=== PATIENT | female | born 1985 | race Caucasian/White ===

== ENCOUNTER 2018-12-21 03:14 | Emergency (ER) | payer MEDICAID, OTHER ==
[~2018-12-21] VITALS: Ht 170.2 cm; Wt 98.5 kg
[2018-12-21 03:19] VITALS: BP 131/81
[2018-12-21] MEDS ORDERED: NACL 0.9% 1,000 ML IV ONE (04:05)
[2018-12-21] MEDS ORDERED: ONDANSETRON 4 MG/2 ML VIAL IVP ONE (04:25)
[2018-12-21 04:35] LABS: BASOPHILS % (AUTO) 0.2 % (0.0-2.0); EOSINOPHILS % (AUTO) 0.4 % (0.0-4.0); HEMATOCRIT 28.7 % (36-48); HEMOGLOBIN 9.2 g/dL (12.0-16.0); LYMPHOCYTES # (AUTO) 1.4 K/uL (2.5-16.5); LYMPHOCYTES % (AUTO) 12.6 % (20.5-51.1); MEAN CORPUSCULAR HEMOGLOBIN 26 pg (27-31); MEAN CORPUSCULAR HGB CONC 32 g/dL (33-37); MONOCYTES # (AUTO) 0.4 K/uL (0.8-1.0); MONOCYTES % (AUTO) 3.6 % (1.7-9.3); NEUTROPHILS # (AUTO) 9.6 K/uL (1.8-7.7); NEUTROPHILS % (AUTO) 83.2 % (42.2-75.2); PLATELET COUNT (AUTO) 383 K/uL (140-450); RED BLOOD CELL COUNT(AUTO) 3.51 MIL/uL (4.20-5.40); RED CELL DISTRIBUTION WIDTH 17.7 % (11.6-13.7); WHITE BLOOD COUNT (AUTO) 11.5 K/uL (4.8-10.8)
[2018-12-21 04:48] LABS: ANION GAP 8.9 (8-16); CARBON DIOXIDE 32.1 mmol/L (21-32); CREATININE 0.9 mg/dL (0.6-1.3)
[2018-12-21 04:55] LABS: ALBUMIN 3.6 g/dL (3.4-5.0); TOTAL BILIRUBIN 0.3 mg/dL (0.0-1.0)
[2018-12-21 05:13] LABS: PROTHROMBIN TIME 10.2 secs (10.8-13.4)
[2018-12-21 06:30] LABS: BILIRUBIN,URINE NEGATIVE (NEGATIVE); BLOOD, URINE 2+ (NEGATIVE); COLOR,URINE YELLOW (YELLOW); LEUKOCYTE ESTERASE ,URINE NEGATIVE (NEGATIVE); NITRITE, URINE NEGATIVE (NEGATIVE); UGLUCOSE NEGATIVE (NEGATIVE)
[2018-12-21] MEDS ORDERED: FERR-252 PO (06:33)
[2018-12-21] MEDS ORDERED: LORA-476 PO (06:33)
[2018-12-21] MEDS ORDERED: magnesium PO (06:33)
[2018-12-21] MEDS ORDERED: CYAN1TAB67 PO (06:33)
[2018-12-21 06:36] VITALS: BP 128/81
[2018-12-21 06:38] LABS: APPEARANCE,URINE HAZY (CLEAR)
[2018-12-21 06:44] LABS: RBC,URINE 11-20 (MOD) /HPF (0-5)
[2018-12-21 06:45] LABS: WBC,URINE NONE SEEN /HPF (0-5)
== END 2018-12-21 06:28 | disposition home or self-care (01) ==
LOC: MED 03:14
DX: N93.8 Other specified abnormal uterine and vaginal bleeding (principal); R42 Dizziness and giddiness; R07.9 Chest pain, unspecified; F41.9 Anxiety disorder, unspecified; Z79.899 Other long term (current) drug therapy; Z88.0 Allergy status to penicillin; Z88.6 Allergy status to analgesic agent; Z88.5 Allergy status to narcotic agent
CPT/HCPCS: 36415; 76856; 80053; 81001; 85025; 85610; 85730; 86900; 86901; 96361; 96374; 99284; J2405; J7030; Q0092

== ENCOUNTER 2019-04-21 05:20 | Emergency (ER) | payer OTHER ==
[~2019-04-21] VITALS: Ht 170.2 cm; Wt 90.7 kg
[~2019-04-21 05:20] MED LIST: CYAN1TAB67 PO; FERR-252 PO; LORA-476 PO; magnesium PO
[2019-04-21 05:25] VITALS: BP 153/91
--- NOTE | 2019-04-21 05:25 | NUR ---
33 Y/O FEMALE BIB SELF REPORTS HEADACHES, NAUSEA, PHELGM, BODY ACHES, THROAT PAIN, AND CONGESTION STARTED THREE DAYS AGO WORSE SINCE YESTERDAY. PATIENT STATES THAT SHE HAS TAKEN TYLENOL FOR THE PAIN WITH SOME RELIEF. DENIES VOMITING/DIARRHEA. PAIN IS A 3/10 GENERALIZED, ACHING BODY PAIN. BREATHING IS UNLABORED AND SYMMETRICAL; MUCOUS MEMBRANES PINK AND MOIST. ABDOMEN SOFT AND ROUND; BOWEL SOUNDS ACTIVE ON ALL FOUR QUADRANTS. ERMD MADE AWARE OF STATUS. SIDE [id number]. PLACED ON MONITOR. HX: THYROID, ANXIETY, VITAMIN DEFECIENCY RX: ATIVAN; METHIMAZOLE Addendum: 04/21/19 at 0551 by MEDMARGARITA ALLERGIES: PENICILLIN; ASPIRIN, MEPERIDINE, SHRIMP
--- NOTE | 2019-04-21 05:59 | NUR ---
Dr. Weeks examining patient.
[2019-04-21] MEDS: NACL 0.9% 500 ML IV ONE (06:22)
[2019-04-21 07:04] VITALS: BP 135/83
--- NOTE | 2019-04-21 07:04 | NUR ---
Patient discharged with v/s stable. Written and verbal after care instructions given and explained. Patient alert, oriented and verbalized understanding of instructions. Ambulatory with steady gait. All questions addressed prior to discharge. ID band removed. Patient advised to follow up with PMD. Rx of PROMETHAZINE; MOTRIN given. Patient educated on indication of medication including possible reaction and side effects. Opportunity to ask questions provided and answered.
== END 2019-04-21 07:04 | disposition home or self-care (01) ==
LOC: MED 05:20
DX: J06.9 Acute upper respiratory infection, unspecified (principal); R03.0 Elevated blood-pressure reading, without diagnosis of hypertension; E07.9 Disorder of thyroid, unspecified; F41.9 Anxiety disorder, unspecified; Z79.899 Other long term (current) drug therapy; Z88.6 Allergy status to analgesic agent; Z88.5 Allergy status to narcotic agent; Z91.010 Allergy to peanuts
CPT/HCPCS: 87804; 99283; J7030

== ENCOUNTER 2019-04-21 20:57 | Emergency (ER) | payer OTHER ==
[~2019-04-21] VITALS: Ht 170.2 cm; Wt 90.7 kg
[2019-04-21 21:15] VITALS: BP 150/91
--- NOTE | 2019-04-21 21:30 | NUR ---
pt states she was here earlier today and had adverse reaction to promethazine. pt alert and oriented, caughing and nasal congestion. IV established, medicated per MD order.
[2019-04-21] MEDS ORDERED: ONDANSETRON 4 MG/2 ML VIAL IVP ONE (21:55)
[2019-04-21] MEDS ORDERED: NACL 0.9% 1,000 ML IV ONE (21:55)
[2019-04-21 23:17] VITALS: BP 132/78
--- NOTE | 2019-04-22 11:08 | NUR ---
Late entry. Confirmed with RN that 0.9 NS IV completed at 2300.
== END 2019-04-21 23:17 | disposition home or self-care (01) ==
LOC: MED 20:57
DX: R11.10 Vomiting, unspecified (principal); R19.7 Diarrhea, unspecified; Z86.39 Personal history of other endocrine, nutritional and metabolic disease; Z79.899 Other long term (current) drug therapy; Z88.5 Allergy status to narcotic agent; Z88.0 Allergy status to penicillin; Z88.6 Allergy status to analgesic agent; Z88.8 Allergy status to other drugs, medicaments and biological substances; Z91.013 Allergy to seafood
CPT/HCPCS: 96361; 96374; 99283; J2405; J7030

== ENCOUNTER 2020-09-29 13:07 | Emergency (ER) | payer OTHER ==
[~2020-09-29] VITALS: Ht 157.5 cm; Wt 100.2 kg
[2020-09-29 13:12] VITALS: BP 149/89
--- NOTE | 2020-09-29 13:15 | NUR ---
PT TAKEN TO BED 4, AMBULATORY WITH STEADY GAIT.
--- NOTE | 2020-09-29 13:16 | NUR ---
Patient ambulated to restroom for urine sample.
--- NOTE | 2020-09-29 13:45 | NUR ---
35 y/o F brought in from home with c/c UTI symptoms + back pain. Patient reports lower back pain and dysuria + urinary frequency, dry mouth, and "cold feet" for 3 days. Patient reports acute onset; reports low back pain 5/10, sharp/"swelling"/intermittent, non-radiating pain. Patient states it worsens with movement. States associated nausea, denies vomiting, diarrhea, fever/chills, headache, abdominal pain, pelvic pain, blurry vision, dizziness/fatigue, SOB, chest pain. Patient reports Ativan 0.5mg and Ibuprofen 400mg prior to arrival with minor relief to pain. Pt placed onto blood pressure cuff, pulse ox. Last BM this AM normoactive bowel sounds x 4 quadrants, LMP 2 weeks ago. Bed locked in lowest position, blanket provided, side rails x 1, call light in reach. PMH: Hyperthyroidism, HLD Meds: Methimazole Allergies: ASA, PCN, meperidine Sx: Uterine cyst removal 2019
--- NOTE | 2020-09-29 13:59 | NUR ---
Patient ambulated to restroom with steady/even gait.
--- NOTE | 2020-09-29 14:12 | NUR ---
Cranberry juice, saltine crackers and blanket provided per request.
--- NOTE | 2020-09-29 14:13 | NUR ---
GUSTAVO Aguila is evaluating patient at bedside.
[2020-09-29] MEDS ORDERED: LIDOCAINE MPF 1% 5 ML ONE (14:24)
[2020-09-29] MEDS ORDERED: cefTRIAXone 1,000 MG VIAL ONE (14:24)
[2020-09-29] MEDS ORDERED: KETOROLAC 30 MG/ML VIAL IM ONE (14:25)
[2020-09-29] MEDS ORDERED: cefTRIAXone 1,000 MG in LIDOCAINE MPF 1% 2.1 ML IM ONE (14:25)
[2020-09-29] MEDS ORDERED: IBUP-2213 PO (14:28)
[2020-09-29] MEDS ORDERED: CEPH-588 PO (14:28)
[2020-09-29 14:44] VITALS: BP 149/89
--- NOTE | 2020-09-29 14:44 | NUR ---
Patient discharged with v/s stable. Written and verbal after care instructions given and explained. Patient alert, oriented and verbalized understanding of instructions. Ambulatory with steady gait. All questions addressed prior to discharge. ID band removed. Patient advised to follow up with PMD. Rx of cephalexin, ibuprofen given. Patient educated on indication of medication including possible reaction and side effects. Opportunity to ask questions provided and answered.
== END 2020-09-29 14:44 | disposition home or self-care (01) ==
LOC: MED 13:07
DX: N39.0 Urinary tract infection, site not specified (principal); M54.40 Lumbago with sciatica, unspecified side; E07.9 Disorder of thyroid, unspecified; Z88.0 Allergy status to penicillin; Z88.6 Allergy status to analgesic agent; Z88.8 Allergy status to other drugs, medicaments and biological substances; Z79.899 Other long term (current) drug therapy
CPT/HCPCS: 81002; 81025; 96372; 99284; J0696; J1885; J2001

== ENCOUNTER 2021-01-28 09:27 | Emergency (ER) | payer OTHER ==
[~2021-01-28] VITALS: Ht 170.2 cm; Wt 101.4 kg
[~2021-01-28 09:27] MED LIST changes: +CEPH-588 PO; +IBUP-2213 PO
[2021-01-28 09:33] VITALS: BP 157/96
--- NOTE | 2021-01-28 09:47 | NUR ---
BIB SELF C/O VAGINAL BLEEDING, 5/10 LOWER ABDOMINAL PAIN, LOWER BACK PAIN , NAUSEA X LAST NIGHT. PMH: UTERINE FIBROID, ENDOMETRIOSIS, THYROID
--- NOTE | 2021-01-28 09:47 | NUR ---
DR. REN BEDSIDE EVALUATING PT
--- NOTE | 2021-01-28 09:47 | NUR ---
Patient being evaluated by DR REN at [facility].
[2021-01-28] MEDS ORDERED: ONDANSETRON 4 MG ODT PO ONE (09:50)
--- NOTE | 2021-01-28 10:18 | NUR ---
BLOODWORK COLLECTED BEDSIDE AND HANDED OVER TO [facility]
[2021-01-28 10:29] LABS: BASOPHILS % (AUTO) 0.5 % (0.0-2.0); EOSINOPHILS # (AUTO) 0.1 K/uL (0-0.4); EOSINOPHILS % (AUTO) 1.2 % (0.0-4.0); HEMATOCRIT 41.5 % (36-48); LYMPHOCYTES # (AUTO) 1.6 K/uL (2.5-16.5); LYMPHOCYTES % (AUTO) 24.6 % (20.5-51.1); MEAN CORPUSCULAR HEMOGLOBIN 31 pg (27-31); MEAN CORPUSCULAR HGB CONC 34 g/dL (33-37); MEAN CORPUSCULAR VOLUME 91.9 fL (80-94); MONOCYTES # (AUTO) 0.3 K/uL (0.8-1.0); MONOCYTES % (AUTO) 5.1 % (1.7-9.3); NEUTROPHILS # (AUTO) 4.4 K/uL (1.8-7.7); NEUTROPHILS % (AUTO) 68.6 % (42.2-75.2); PLATELET COUNT (AUTO) 358 K/uL (140-450); RED BLOOD CELL COUNT(AUTO) 4.52 MIL/uL (4.20-5.40); RED CELL DISTRIBUTION WIDTH 12.9 % (11.6-13.7); WHITE BLOOD COUNT (AUTO) 6.4 K/uL (4.8-10.8)
[2021-01-28] MEDS ORDERED: ONDA8TAB87 PO (10:30)
[2021-01-28] MEDS ORDERED: MEDR10TA PO (10:30)
[2021-01-28 11:05] VITALS: BP 151/87
--- NOTE | 2021-01-28 11:06 | NUR ---
Patient discharged with v/s stable. Written and verbal after care instructions given and explained. Patient alert, oriented and verbalized understanding of instructions. Ambulatory with steady gait. All questions addressed prior to discharge. ID band removed. Patient advised to follow up with PMD. Rx of PROVERA,ZOFRAN given. Patient educated on indication of medication including possible reaction and side effects. Opportunity to ask questions provided and answered.
== END 2021-01-28 11:06 | disposition home or self-care (01) ==
LOC: MED 09:27
DX: N93.8 Other specified abnormal uterine and vaginal bleeding (principal); Z86.39 Personal history of other endocrine, nutritional and metabolic disease; Z98.890 Other specified postprocedural states; Z79.899 Other long term (current) drug therapy; Z79.1 Long term (current) use of non-steroidal anti-inflammatories (NSAID); Z79.2 Long term (current) use of antibiotics; Z88.5 Allergy status to narcotic agent; Z88.0 Allergy status to penicillin; Z88.6 Allergy status to analgesic agent; Z91.013 Allergy to seafood
CPT/HCPCS: 36415; 81002; 81025; 85025; 99283; Q0162

== ENCOUNTER 2021-02-24 09:04 | Emergency (ER) | payer OTHER ==
[~2021-02-24] VITALS: Ht 170.2 cm; Wt 98.1 kg
[~2021-02-24 09:04] MED LIST changes: +MEDR10TA PO; +ONDA8TAB87 PO
[2021-02-24 09:11] VITALS: BP 145/91
--- NOTE | 2021-02-24 09:13 | NUR ---
PT TAKEN TO ER BED 12.
--- NOTE | 2021-02-24 09:16 | NUR ---
35 Y/O FEMALE C/O RLQ ABDOMINAL PAIN WITH VAGINAL BLEEDING [id number]. PT STATES PAIN 5/10 DESCRIBES SHARP. PT STATES SHE TOOK RX PRIOR TO ARRIVAL WITH NO RELIEFS. ABDOMEN IS SOFT, ROUND, NON-DISTENDED, BOWEL SOUNDS ACTIVE X4, LAST BM 02/23/21. PT STATES SHE HAS APPT WITH OBGYN 03/03/21 BUT FELT INCREASINGLY WEAK. DENIES N/V, DENIES FEVER/CHILLS. DENIES PMH ALLERGIES: PCN, ASA, MEPERIDINE
--- NOTE | 2021-02-24 09:58 | NUR ---
BLOOD WORK COLLECTED AND WALKED OVER TO LAB BY DINO CALDWELL
--- NOTE | 2021-02-24 10:09 | NUR ---
US BEDSIDE WITH PATIENT
[2021-02-24 10:27] LABS: BASOPHILS % (AUTO) 0.5 % (0.0-2.0); EOSINOPHILS % (AUTO) 0.5 % (0.0-4.0); HEMATOCRIT 36.1 % (36-48); HEMOGLOBIN 12.2 g/dL (12.0-16.0); LYMPHOCYTES # (AUTO) 1.6 K/uL (2.5-16.5); LYMPHOCYTES % (AUTO) 18.9 % (20.5-51.1); MEAN CORPUSCULAR HEMOGLOBIN 31 pg (27-31); MEAN CORPUSCULAR HGB CONC 34 g/dL (33-37); MEAN CORPUSCULAR VOLUME 91.8 fL (80-94); MONOCYTES # (AUTO) 0.2 K/uL (0.8-1.0); MONOCYTES % (AUTO) 2.8 % (1.7-9.3); NEUTROPHILS # (AUTO) 6.4 K/uL (1.8-7.7); NEUTROPHILS % (AUTO) 77.3 % (42.2-75.2); PLATELET COUNT (AUTO) 364 K/uL (140-450); RED BLOOD CELL COUNT(AUTO) 3.93 MIL/uL (4.20-5.40); RED CELL DISTRIBUTION WIDTH 12.9 % (11.6-13.7); WHITE BLOOD COUNT (AUTO) 8.3 K/uL (4.8-10.8)
[2021-02-24 10:51] LABS: ALBUMIN 3.8 g/dL (3.4-5.0); ANION GAP 12.4 (8-16); CARBON DIOXIDE 27.8 mmol/L (21-32); CREATININE 0.8 mg/dL (0.6-1.3); POTASSIUM 4.2 mmol/L (3.5-5.1); THYROID STIMULATING HORMONE 1.86 uIU/mL (0.34-3.74); TOTAL BILIRUBIN 0.2 mg/dL (0.0-1.0)
[2021-02-24 12:19] VITALS: BP 134/86
--- NOTE | 2021-02-24 12:20 | NUR ---
Patient discharged with v/s stable. Written and verbal after care instructions given and explained. Patient verbalized understanding. Ambulatory with steady gait. All questions addressed prior to discharge. Advised to follow up with PMD.
== END 2021-02-24 12:19 | disposition home or self-care (01) ==
LOC: MED 09:04
DX: N93.9 Abnormal uterine and vaginal bleeding, unspecified (principal); E07.9 Disorder of thyroid, unspecified; Z88.0 Allergy status to penicillin; Z88.6 Allergy status to analgesic agent; Z88.8 Allergy status to other drugs, medicaments and biological substances; Z79.899 Other long term (current) drug therapy; Z98.890 Other specified postprocedural states
CPT/HCPCS: 36415; 76830; 80053; 81002; 81025; 84443; 85025; 93976; 99284; Q0092

== ENCOUNTER 2021-05-20 07:56 | Emergency (ER) | payer OTHER ==
[~2021-05-20] VITALS: Ht 170.2 cm; Wt 99.8 kg
[2021-05-20 08:45] VITALS: BP 147/89
--- NOTE | 2021-05-20 09:49 | NUR ---
PT SEEN BY DR MILLER, NO NURSING INTERVENTIONS PROVIDED.
--- NOTE | 2021-05-20 09:50 | NUR ---
PT CLEARED FOR DISCHARGE BY DR MILLER. PT LEFT WITHOUT DISCHARGE PAPERWORK.
== END 2021-05-20 09:50 | disposition home or self-care (01) ==
LOC: MED 07:56
DX: U07.1 COVID-19 (principal); E07.9 Disorder of thyroid, unspecified; Z79.899 Other long term (current) drug therapy; Z88.0 Allergy status to penicillin; Z88.6 Allergy status to analgesic agent; Z88.8 Allergy status to other drugs, medicaments and biological substances
CPT/HCPCS: 99281